=== PATIENT | female | born 1935 | race Caucasian/White ===

== ENCOUNTER 2017-01-19 11:20 | Emergency (ER) | payer MEDICARE, OTHER ==
[~2017-01-19] VITALS: Ht 157.5 cm; Wt 100.0 kg
[~2017-01-19 11:20] MED LIST: ASPI325T PO; BENZ100 PO; LISI2.5T3 PO
[2017-01-19 11:22] VITALS: BP 150/74; PULSE 72; RESP 16; TEMP 98.5; O2SAT 99
--- NOTE | 2017-01-19 11:28 | PD ---
Physical Exam Time Seen by Provider: 11:26 Narrative Pt presents to the ED for evaluation of periumbilical abdominal pain for months. States had 1 episode of emesis last night. Denies diarrhea. Denies fever. Denies sick contacts. States she called Dr. Nazario's office today and was told to come in for evaluation. VSS. Patient awaiting bed placement. Data Data Last Documented VS Vital Signs Date Time Temp Pulse Resp B/P Pulse Ox O2 Delivery O2 Flow Rate FiO2 01/19/17 11:22 98.5 72 16 150/74 99 Room Air MDM Supervised Visit with BRUNA: Zeynep Godoy Jan 19, 2017 11:28
[2017-01-19 11:51] VITALS: BP 141/66; PULSE 68; RESP 20; O2SAT 98
--- NOTE | 2017-01-19 11:56 | PD ---
HPI Chief Complaint: GI Complaint Time Seen by Provider: 11:35 Travel History International Travel<30 days: No Contact w/Intl Traveler<30days: No Traveled to known affect area: No History of Present Illness HPI This is an 81-year-old female who presents for evaluation of abdominal pain. Symptom onset 4 years ago. She cannot describe the pain, she just says that it hurts in the periumbilical region and it is constant. It seems to be worse when she eats. Nothing relieves the pain. The pain has gotten worse over the past 3 months. She reports that she has been following with county coroner Dr. Naranjo who reportedly did an endoscopy and colonoscopy one year ago which didn't reveal any source of her pain. She has not received a definitive diagnosis in regards to her pain. Because symptoms have been persistent and she doesn't have another appointment for repeat endoscopy and told February 02, her gastric neurologist suggested that she come here today. She does endorse some occasional dysphagia. She endorses some nausea, one episode of emesis yesterday. Denies any chest pain or shortness of breath, cough or congestion, fevers or chills, flank pain, dysuria, diarrhea or constipation. She reports a history of appendectomy, cholecystectomy, partial hysterectomy as well as lap band procedure in the past. Primary care physician is Dr. Winters. No other complaints. 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) Neurologic: No Psychiatric: No Reproductive: No Respiratory: No Thyroid Disease: No Menopausal: Yes Ovarian Cysts: Yes Past Surgical History Abdominal Surgery: Yes (lap band 06/03/10/ cholecystectomy) Appendectomy: Yes Cholecystectomy: Yes Hysterectomy: Yes Other Surgery: Yes (2 x left foot 1 x left ankle surg) Social History Alcohol Use: Yes (Wine occas) Tobacco Use: No Substance Use: No Allergies-Medications (Allergen,Severity, Reaction): Coded Allergies: Codeine (Verified Allergy, Severe, Anaphylaxis, 01/19/17) Darvocet-N 100 (Verified Allergy, Mild, SWELLING TO FACE, 01/19/17) Reported Meds & Prescriptions Reported Meds & Active Scripts Active Reglan (Metoclopramide HCl) 10 Mg Tab 10 Mg PO QID 5 Days Flagyl (Metronidazole) 250 Mg Tab 250 Mg PO TID 10 Days Bentyl (Dicyclomine HCl) 10 Mg Cap 20 Mg PO QID 10 Days Reported Multi-Vitamin Daily (Multiple Vitamin) 1 Tab Tab 1 Tab PO DAILY Isamar-Clarion Heartburn Relief (Sodium Bicarbonate-Citric Acid) 1,940-1,000 Mg Tab 2 Tab PO BID PRN Cimetidine 300 Mg Tab 200 Mg PO BID Melatonin 10 Mg Tab 20 Mg PO HS PRN Flecainide (Flecainide Acetate) 50 Mg Tab 50 Mg PO BID Amitriptyline (Amitriptyline HCl) 25 Mg Tab 25 Mg PO HS Bethanechol 25 Mg Tab 12.5 Mg PO QID Atorvastatin (Atorvastatin Calcium) 40 Mg Tab 40 Mg PO HS Metoprolol Succinate ER 24 HR (Metoprolol Succinate) 25 Mg Tab 12.5 Mg PO BID Losartan (Losartan Potassium) 50 Mg Tab 50 Mg PO DAILY Eliquis (Apixaban) 5 Mg Tab 5 Mg PO BID Review of Systems Except as stated in HPI: all other systems reviewed are Neg Physical Exam Narrative GENERAL: Well-developed well-nourished female in no acute distress SKIN: Warm and dry. HEAD: Atraumatic. Normocephalic. EYES: Pupils equal and round. No scleral icterus. No injection or drainage. ENT: No nasal bleeding or discharge. Mucous membranes pink and moist. NECK: Trachea midline. No JVD. CARDIOVASCULAR: Regular rate and rhythm. No murmur appreciated. RESPIRATORY: No accessory muscle use. Clear to auscultation. Breath sounds equal bilaterally. No crackles no wheezing or rhonchi GASTROINTESTINAL: Abdomen soft, tender to palpation in the epigastrium without guarding. There is no abdominal distention. No CVA tenderness. MUSCULOSKELETAL: No obvious deformities. No clubbing. No cyanosis. No edema. NEUROLOGICAL: Awake and alert. No obvious cranial nerve deficits. Motor grossly within normal limits. Normal speech. PSYCHIATRIC: Appropriate mood and affect; insight and judgment normal. Data Data Last Documented VS Vital Signs Date Time Temp Pulse Resp B/P Pulse Ox O2 Delivery O2 Flow Rate FiO2 01/19/17 15:19 16 01/19/17 14:03 64 142/67 99 Room Air 01/19/17 11:22 98.5 Orders Complete Blood Count With Diff (01/19/17 11:46) Comprehensive Metabolic Panel (01/19/17 11:46) Lipase (01/19/17 11:46) Urinalysis - C+S If Indicated (01/19/17 11:46) Ct Abd/Pel W Iv Contrast(Rout) (01/19/17 11:46) Iv Access Insert/Monitor (01/19/17 11:46) Ecg Monitoring (01/19/17 11:46) Oximetry (01/19/17 11:46) Ondansetron Inj (Zofran Inj) (01/19/17 12:00) Sodium Chloride 0.9% Flush (Ns Flush) (01/19/17 12:00) Al-Mag Hy-Si 40-40-4 Mg/Ml Liq (Mag-Al P (01/19/17 12:00) Lidocaine 2% Viscous (Xylocaine 2% Visco (01/19/17 12:00) Electrocardiogram (01/19/17 ) Morphine Inj (Morphine Inj) (01/19/17 12:00) Morphine Inj (Morphine Inj) (01/19/17 13:45) Labs Laboratory Tests Test 01/19/17 01/19/17 12:50 13:37 White Blood Count 7.2 TH/MM3 Red Blood Count 3.98 MIL/MM3 Hemoglobin 10.7 GM/DL Hematocrit 32.4 % Mean Corpuscular Volume 81.3 FL Mean Corpuscular Hemoglobin 27.0 PG Mean Corpuscular Hemoglobin 33.2 % Concent Red Cell Distribution Width 15.3 % Platelet Count 275 TH/MM3 Mean Platelet Volume 8.7 FL Neutrophils (%) (Auto) 75.1 % Lymphocytes (%) (Auto) 15.7 % Monocytes (%) (Auto) 6.3 % Eosinophils (%) (Auto) 2.2 % Basophils (%) (Auto) 0.7 % Neutrophils # (Auto) 5.4 TH/MM3 Lymphocytes # (Auto) 1.1 TH/MM3 Monocytes # (Auto) 0.5 TH/MM3 Eosinophils # (Auto) 0.2 TH/MM3 Basophils # (Auto) 0.0 TH/MM3 CBC Comment DIFF FINAL Differential Comment Sodium Level 141 MEQ/L Potassium Level 4.1 MEQ/L Chloride Level 103 MEQ/L Carbon Dioxide Level 31.7 MEQ/L Anion Gap 6 MEQ/L Blood Urea Nitrogen 19 MG/DL Creatinine 1.02 MG/DL Estimat Glomerular Filtration 52 ML/MIN Rate Random Glucose 79 MG/DL Calcium Level 9.5 MG/DL Total Bilirubin 0.4 MG/DL Aspartate Amino Transf 28 U/L (AST/SGOT) Alanine Aminotransferase 19 U/L (ALT/SGPT) Alkaline Phosphatase 95 U/L Total Protein 5.8 GM/DL Albumin 2.5 GM/DL Lipase 103 U/L Urine Color YELLOW Urine Turbidity CLEAR Urine pH 8.0 Urine Specific [place] 1.011 Urine Protein NEG mg/dL Urine Glucose (UA) NEG mg/dL Urine Ketones NEG mg/dL Urine Occult Blood NEG Urine Nitrite NEG Urine Bilirubin NEG Urine Urobilinogen LESS THAN 2.0 MG/DL Urine Leukocyte Esterase NEG Urine WBC LESS THAN 1 /hpf Urine Squamous Epithelial 1 /hpf Cells Microscopic Urinalysis Comment CULT NOT INDICATED MDM Medical Decision Making Medical Screen Exam Complete: Yes Emergency Medical Condition: Yes Medical Record Reviewed: Yes Interpretation(s) EKG sinus rhythm CBC hemoglobin 10.7 CMP Lipase Differential Diagnosis IBD, IBS, mesenteric ischemia, pancreatitis, intra-abdominal mass, gastritis, peptic ulcer disease Narrative Course 81-year-old female who has suffered from 3-4 years of epigastric/periumbilical abdominal pain, worse over the past 3 months, currently being worked up as an outpatient by county coroner Dr. Naranjo. [place] basic lab work, EKG, CT abdomen and pelvis, pain medication. The patient 's lab work and imaging studies of been reviewed. She has nonspecific thickening involving the distal small bowel at the level of the terminal ileum. This suggests inflammatory bowel disease such as Crohn's. There is no evidence of obstruction. I discussed these findings with Dr. Mistry the county coroner client integration manager for her county coroner and he recommends prescribing Bentyl 20 mg every 6 as needed, Flagyl 250 mg every 3 hours and close outpatient follow-up for further testing. Discussed these recommendations with the patient and her at bedside who are agreeable. She is stable for discharge. Diagnosis Primary Impression: Abdominal pain Qualified Code: R10.9 - Abdominal pain, unspecified location Additional Instructions: Medication as prescribed. Follow up closely with county coroner. Return for any emergent medical conditions. Med/Other Pt SpecificInfo: Prescription(s) given Scripts Metoclopramide (Reglan)10 Mg Tab10 Mg PO QID 5 Days Ref 0 Prov:Tosha Charles DO 01/19/17 Metronidazole (Flagyl)250 Mg [id number] Mg PO TID 10 Days Ref 0 Prov:Tosha Charles DO 01/19/17 Dicyclomine (Bentyl)10 Mg Cap20 Mg PO QID 10 Days Ref 0 Prov:Tosha Charles DO 01/19/17 Disposition: 01 DISCHARGE HOME Condition: Stable Terry Palomino Jan 19, 2017 11:55
[2017-01-19] MEDS ORDERED: SODIUM CHLORIDE 0.9% FLUSH 10 ML FLUSH IV FLUSH PRN (12:00)
[2017-01-19] MEDS ORDERED: LIDOCAINE VISCOUS 2% SOLN 15 ML UDC PO ONE (12:00)
[2017-01-19] MEDS ORDERED: ALUMINUM/MAGNESIUM/SIMETH 30 ML CUP PO ONE (12:00)
[2017-01-19] MEDS ORDERED: ONDANSETRON HCL 4 MG/2 ML VIAL IVP ONE (12:00)
[2017-01-19] MEDS ORDERED: MORPHINE SULFATE 4 MG/ML INJ IV PUSH ONE ×2 (12:00→13:45)
[2017-01-19 13:22] LABS: AUTOMATED NEUTROPHIL # 5.4 TH/MM3 (1.8-7.7); BASOPHIL % 0.7 % (0.0-2.0); EOSINOPHIL # 0.2 TH/MM3 (0-0.4); EOSINOPHIL % 2.2 % (0.0-4.0); HEMATOCRIT 32.4 % (35.0-46.0); HEMO FLAGS DIFF FINAL; LYMPH % 15.7 % (9.0-44.0); LYMPHOCYTE # 1.1 TH/MM3 (1.0-4.8); MEAN CELL VOLUME 81.3 FL (80.0-100.0); MEAN CORPUSCULAR HGB CONC 33.2 % (32.0-36.0); MONO % 6.3 % (0.0-8.0); NEUT % 75.1 % (16.0-70.0); PLATELET COUNT 275 TH/MM3 (150-450); RED BLOOD COUNT 3.98 MIL/MM3 (4.00-5.30); RED CELL DISTRIBUTION WIDTH 15.3 % (11.6-17.2); WHITE BLOOD COUNT 7.2 TH/MM3 (4.0-11.0)
[2017-01-19 13:45] LABS: BLOOD, URINE NEG (NEG); GLUCOSE,URINE NEG (NEG); KETONE, URINE NEG (NEG); NITRITE,URINE NEG (NEG); SQUAMOUS EPITHELIAL CELL URINE 1 /hpf (0-5); URINE COLOR YELLOW (YELLW/STRAW)
[2017-01-19 13:48] LABS: ALT (GPT) 19 U/L (10-53)
[2017-01-19 13:48] LABS: COMMENT (UR) CULT NOT INDICATED; CULTURE IF INDICATED CULT NOT INDICATED
[2017-01-19 13:51] LABS: ALKALINE PHOSPHATASE 95 U/L (45-117); TOTAL BILIRUBIN ADULT 0.4 MG/DL (0.2-1.0)
[2017-01-19 13:58] LABS: ANION GAP 6 MEQ/L (5-15); AST (GOT) 28 U/L (15-37); BICARBONATE 31.7 MEQ/L (21.0-32.0); BLOOD UREA NITROGEN 19 MG/DL (7-18); CHLORIDE 103 MEQ/L (98-107); GLOMERULAR FILTRATION RATE 52 ML/MIN (>89); SODIUM (NA) 141 MEQ/L (136-145)
[2017-01-19 14:03] VITALS: BP 142/67; PULSE 64; RESP 18; O2SAT 99
[2017-01-19 14:06] LABS: POTASSIUM 4.1 MEQ/L (3.5-5.1)
[2017-01-19] MEDS ORDERED: MULT-65 PO (14:13)
[2017-01-19] MEDS ORDERED: APIX5TAB PO (14:13)
[2017-01-19] MEDS ORDERED: BETH25TA2 PO (14:13)
[2017-01-19] MEDS ORDERED: SODITAB PO (14:13)
[2017-01-19] MEDS ORDERED: ATOR40TA16 PO (14:13)
[2017-01-19] MEDS ORDERED: METO25TA6 PO (14:13)
[2017-01-19] MEDS ORDERED: CIME300T PO (14:13)
[2017-01-19] MEDS ORDERED: AMIT25TA9 PO (14:13)
[2017-01-19] MEDS ORDERED: FLEC1TAB8 PO (14:13)
[2017-01-19] MEDS ORDERED: LOSA50TA PO (14:13)
[2017-01-19] MEDS ORDERED: MELA1TAB18 PO (14:13)
[2017-01-19] MEDS ORDERED: IOHEXOL 350 MG/ML 10 ML VIAL (for RAD DIAG) IV ONE (15:06)
[2017-01-19 15:19] VITALS: RESP 16
--- NOTE | 2017-01-19 15:38 | RADRPT ---
EXAM DATE/TIME: 01/19/2017 15:06 [facility] COMPARISON: No previous studies available for comparison. INDICATIONS : Mid abdominal pain for years. IV CONTRAST: 98 cc Omnipaque 350 (iohexol) IV ORAL CONTRAST: No oral contrast ingested. RADIATION DOSE: 17.48 CTDIvol (mGy) MEDICAL HISTORY : None SURGICAL HISTORY : Appendectomy. Cholecystectomy.Lap band ENCOUNTER: Initial ACUITY: >1 yr PAIN SCALE: 4/10 LOCATION: Bilateral upper quadrant TECHNIQUE: Volumetric scanning of the abdomen and pelvis was performed. Using automated exposure control and ad justment of the mA and/or kV according to patient size, radiation dose was kept as low as reasonably achievable to obtain optimal diagnostic quality images. DICOM format image data is available electro nically for review and comparison. FINDINGS: LOWER LUNGS: The visualized lower lungs are clear. LIVER: Homogeneous density without lesion. There is mild dilation of the biliary tree. No gallbladder, teddy gically removed.. SPLEEN: Normal size without lesion. PANCREAS: Within normal limits. KIDNEYS: Normal in size and shape. There is no mass, stone or hydronephrosis. ADRENAL GLANDS: Within normal limits. VASCULAR: There is no aortic aneurysm. Atherosclerotic changes. BOWEL/MESENTERY: Bowel gas pattern is within normal limits. There is a lap band device in place. There is a small hiat al hernia. There is no abnormal dilatation of small or bowel. There is some mild nonspecific thickeni ng involving the distal small bowel near the terminal ileum. The colon is grossly unremarkable. ABDOMINAL WALL: Within normal limits. RETROPERITONEUM: There is no lymphadenopathy. BLADDER: No wall thickening or mass. REPRODUCTIVE: Within normal limits. INGUINAL: There is no lymphadenopathy or hernia. MUSCULOSKELETAL: Within normal limits for patient age. Primary bony degenerative changes. CONCLUSION: 1. There is nonspecific thickening involving the distal small bowel at the level of the terminal ileu m. This suggests inflammatory bowel disease such as Crohn's disease. There is no evidence of obstruct ion. The rest of the small and large bowel are grossly unremarkable. 2. Status post cholecystectomy with some mild location of the biliary tree. This is most likely secon shiv from reservoir effect. Recommend correlation with patient's liver laboratory values. 3. Lap band device in place. Noé Pavon MD on January 19, 2017 at 15:30 Board Certified Radiologist. This report was verified electronically.
[2017-01-19] MEDS ORDERED: DICY10 PO (16:27)
[2017-01-19] MEDS ORDERED: METR250 PO (16:27)
[2017-01-19] MEDS ORDERED: REGL10TA5 PO (16:30)
[2017-01-19 17:10] VITALS: BP 146/81
--- NOTE | 2017-01-20 18:27 | EKG ---
Date Performed: 01/19/2017 Time Performed: 13:01:11 PTAGE: 81 years EKG: Sinus rhythm WITH OCCASIONAL SUPRAVENTRICULAR PREMATURE COMPLEXES Compared to previous tracing, the atrial fibril lation has resolved BORDERLINE ECG PREVIOUS TRACING : 09/26/2015 22.36 DOCTOR: Yuly Lewis Interpretating Date/Time 01/20/2017 18:27:18
== END 2017-01-19 17:11 | disposition home or self-care (01) ==
LOC: NEPC 11:20
DX: R10.9 Unspecified abdominal pain (principal); I47.1 Supraventricular tachycardia
CPT/HCPCS: 74177; 80053; 81001; 83690; 85025; 93005; 96374; 96375; 96376; 99285; J2270; J2405; Q9967